=== PATIENT | female | born 1985 | race Caucasian/White ===

== ENCOUNTER 2017-10-07 12:49 | Emergency (ER) | payer OTHER ==
[~2017-10-07] VITALS: Ht 160 cm; Wt 116.1 kg
[~2017-10-07 12:49] MED LIST: CLIN150C1 PO; SULF-58 PO
[2017-10-07 12:51] VITALS: BP 110/78
[2017-10-07 14:50] VITALS: BP 121/75
== END 2017-10-07 14:50 | disposition home or self-care (01) ==
LOC: MED 12:49
DX: O03.9 Complete or unspecified spontaneous abortion without complication (principal); Z79.899 Other long term (current) drug therapy; Z88.0 Allergy status to penicillin; Z88.1 Allergy status to other antibiotic agents; Z88.8 Allergy status to other drugs, medicaments and biological substances
CPT/HCPCS: 76815; 81025; 99284; Q0092

== ENCOUNTER 2018-11-03 10:52 | Emergency (ER) | payer OTHER ==
[~2018-11-03] VITALS: Ht 160 cm; Wt 120.2 kg
[2018-11-03 11:02] VITALS: BP 132/84
--- NOTE | 2018-11-03 11:02 | NUR ---
33 YO FEMALE BIB SELF FOR 10 SUDDEN BL LOW BACK PAIN FOR 3 DAYS, WORSE TODAY RADIATING TO RIGHT LEG. ABLE TO AMBULATE WITH STEADY GAIT. PT DENIES ANY RECENT INJURY OR FALL. PT STS SIMILIAR PAIN IN PAST. PT IS AAOX4 TO PERSON, PLACE, TIME, AND SITUATION. RR ARE EVEN AND UNLABORED. PT POSITIONED TO COMFORT. NAD. AWAITING ER MD VEGAS.
--- NOTE | 2018-11-03 11:05 | NUR ---
er md burgess by bedside examining pt
[2018-11-03] MEDS ORDERED: LORazepam 2 MG/ML VIAL IM ONE (11:10)
[2018-11-03] MEDS ORDERED: KETOROLAC 60 MG/2 ML VIAL IM ONE (11:10)
--- NOTE | 2018-11-03 11:38 | NUR ---
awaiting ua sample. patient aware. given multiple cups of water. will continue to check. er md burgess made aware.
--- NOTE | 2018-11-03 12:09 | NUR ---
PT TO XRAY VIA W/C ACCOMPANIED BY FOUNDRY HAND.
--- NOTE | 2018-11-03 12:15 | NUR ---
PT RETURNED FROM XRAY VIA W/C ACCOMPANIED BY PROJECT ADMINISTRATOR. RETURNED TO RM 11 WITHOUT INCIDENT.
[2018-11-03] MEDS ORDERED: traMADol 50 MG TAB PO ONE (12:35)
[2018-11-03] MEDS ORDERED: LACTULOSE 20 GM/30 ML UDC PO ONE (12:35)
--- NOTE | 2018-11-03 13:30 | NUR ---
Patient discharged with v/s stable. Written and verbal after care instructions given and explained. Patient alert, oriented and verbalized understanding of instructions. Ambulatory with steady gait. All questions addressed prior to discharge. ID band removed. Patient advised to follow up with PMD. Rx of Tramadol 50mg and Voltaren 100mg given. Patient educated on indication of medication including possible reaction and side effects. Opportunity to ask questions provided and answered.
[2018-11-03 13:31] VITALS: BP 130/80
[2018-11-03 13:33] LABS: APPEARANCE,URINE HAZY (CLEAR); BILIRUBIN,URINE NEGATIVE (NEGATIVE); BLOOD, URINE NEGATIVE (NEGATIVE); COLOR,URINE YELLOW (YELLOW); LEUKOCYTE ESTERASE ,URINE NEGATIVE (NEGATIVE); NITRITE, URINE NEGATIVE (NEGATIVE); PH,URINE 6.5 (5.0-9.0); UGLUCOSE NEGATIVE (NEGATIVE)
== END 2018-11-03 13:30 | disposition home or self-care (01) ==
LOC: MED 10:52
DX: M54.5 Low back pain (principal); E03.9 Hypothyroidism, unspecified; N92.6 Irregular menstruation, unspecified; M19.90 Unspecified osteoarthritis, unspecified site; E66.01 Morbid (severe) obesity due to excess calories; Z79.899 Other long term (current) drug therapy; Z88.0 Allergy status to penicillin; Z88.1 Allergy status to other antibiotic agents; Z88.5 Allergy status to narcotic agent; Z88.8 Allergy status to other drugs, medicaments and biological substances; Z68.42 Body mass index [BMI] 45.0-49.9, adult
CPT/HCPCS: 74018; 81003; 81025; 96372; 99284; J1885; J2060

== ENCOUNTER 2019-01-03 08:12 | Emergency (ER) | payer OTHER ==
[~2019-01-03] VITALS: Ht 160 cm; Wt 122.0 kg
[2019-01-03 08:20] VITALS: BP 124/76
--- NOTE | 2019-01-03 08:20 | NUR ---
PT BIB [facility] C/O 1010 PAIN FROM CYST NEAR OUTSIDE OF VAGINA X3 DAYS. PT REPORTS SWOLLEN AROUND CYST, HARD, AND TENDER TO TOUCH. PT HAS BEEN TREATING WITH IBUPROFEN WITH SOME RELIRF. VSS. ER TO SEE PT. MEDHX:DENIES RX:TRIMETH/SULFA, IBUPROFEN
--- NOTE | 2019-01-03 08:21 | NUR ---
PT AMBULATED TO ER BED 07
[2019-01-03 08:57] VITALS: BP 124/76
== END 2019-01-03 08:57 | disposition home or self-care (01) ==
LOC: MED 08:12
DX: N76.4 Abscess of vulva (principal); Z88.0 Allergy status to penicillin; Z88.6 Allergy status to analgesic agent; Z88.1 Allergy status to other antibiotic agents; Z90.49 Acquired absence of other specified parts of digestive tract; Z79.2 Long term (current) use of antibiotics
CPT/HCPCS: 81002; 81025; 99283

== ENCOUNTER 2019-01-14 17:10 | Emergency (ER) | payer OTHER ==
[~2019-01-14] VITALS: Ht 160 cm; Wt 118.6 kg
[2019-01-14 17:18] VITALS: BP 111/50
--- NOTE | 2019-01-14 17:20 | NUR ---
PT AMBULATED TO ER BED 07
--- NOTE | 2019-01-14 17:25 | NUR ---
33 Y FEMALE C/O RT FOOT HEEL PAIN. STEPPED ON GLASS LAST WEEK AND WANTS TO MAKE SURE ALL GLASS IS OUT. -REDNESS, -SWELLING, -ECCHYMOSIS. PT STATES PAINFUL WHEN WALKING, 6/10 ACHING PAIN. PT WOULD ALSO LIKE TO CONFIRM WHETHER OR NOT SHE HAS MRSA. VSS AT THIS TIME. BED IS DOWN, LOCKED, BED RAIL X 1, ERMD NOTIFIED. MED HX: HYPERTHYROID
--- NOTE | 2019-01-14 18:06 | NUR ---
DR FRANCISCO AT BEDSIDE
--- NOTE | 2019-01-14 18:14 | NUR ---
XRAY AT BEDSIDE
[2019-01-14] MEDS ORDERED: IBUPROFEN 600 MG TAB PO ONE (18:15)
--- NOTE | 2019-01-14 18:58 | NUR ---
VSS AT THIS TIME, AA0X4, PT SITTING IN BED
[2019-01-14 19:00] VITALS: BP 115/58
--- NOTE | 2019-01-14 19:00 | NUR ---
Patient discharged with v/s stable. Written and verbal after care instructions given and explained. Patient alert, oriented and verbalized understanding of instructions. Ambulatory with steady gait. All questions addressed prior to discharge. ID band removed. Patient advised to follow up with PMD. Rx of KEFLEX, BACITRACIN, IBUPROFEN given. Patient educated on indication of medication including possible reaction and side effects. Opportunity to ask questions provided and answered.
== END 2019-01-14 19:00 | disposition home or self-care (01) ==
LOC: MED 17:10
DX: M79.671 Pain in right foot (principal); E07.9 Disorder of thyroid, unspecified; Z88.0 Allergy status to penicillin; Z88.1 Allergy status to other antibiotic agents; Z88.5 Allergy status to narcotic agent; Z79.899 Other long term (current) drug therapy
CPT/HCPCS: 73630; 81025; 90471; 90715; 99283; Q0092

== ENCOUNTER 2021-07-20 16:50 | Emergency (ER) | payer OTHER ==
[~2021-07-20] VITALS: Ht 162.6 cm; Wt 116.1 kg
[2021-07-20 17:02] VITALS: BP 130/91
--- NOTE | 2021-07-20 17:07 | NUR ---
Patient ambulated to bed 04 with steady/even gait.
[2021-07-20] MEDS ORDERED: MECLIZINE 25 MG TAB PO ONE (17:10)
--- NOTE | 2021-07-20 17:10 | NUR ---
36 y/o F BIB self from home c/o dizziness and nausea x 1 day. Patient A&Ox4, ambulatory, states she noticed dizziness after working out last night. Patient states associated nausea after drinking fluids + head spinning. States laying down/resting alleviates dizziness. Denies abdominal pain, vomiting, diarrhea, constipation, blurry vision, chest pain, SOB. Bed locked in lowest position, side rails x 1, call light in reach. PMH/Sx/Meds: hypothyroidism / levothyroxine Allergies: PCN, Tylenol, amoxicillin
--- NOTE | 2021-07-20 17:11 | NUR ---
SRINI Leyva is evaluating patient at bedside
--- NOTE | 2021-07-20 17:14 | NUR ---
EMT at bedside for EKG
--- NOTE | 2021-07-20 17:14 | NUR ---
Lab at bedside
[2021-07-20] MEDS ORDERED: ONDANSETRON 4 MG ODT PO ONE (17:20)
[2021-07-20 17:33] LABS: BASOPHILS # (AUTO) 0.1 K/uL (0.00-0.22); BASOPHILS % (AUTO) 0.5 % (0.0-2.0); EOSINOPHILS # (AUTO) 0.1 K/uL (0-0.4); EOSINOPHILS % (AUTO) 0.6 % (0.0-4.0); HEMATOCRIT 45.1 % (36-48); HEMOGLOBIN 14.7 g/dL (12.0-16.0); LYMPHOCYTES # (AUTO) 2.9 K/uL (2.5-16.5); LYMPHOCYTES % (AUTO) 24.5 % (20.5-51.1); MEAN CORPUSCULAR HEMOGLOBIN 27 pg (27-31); MEAN CORPUSCULAR HGB CONC 33 g/dL (33-37); MEAN CORPUSCULAR VOLUME 83.9 fL (80-94); MONOCYTES # (AUTO) 0.9 K/uL (0.8-1.0); MONOCYTES % (AUTO) 7.3 % (1.7-9.3); NEUTROPHILS % (AUTO) 67.1 % (42.2-75.2); PLATELET COUNT (AUTO) 245 K/uL (140-450); RED BLOOD CELL COUNT(AUTO) 5.38 MIL/uL (4.20-5.40); RED CELL DISTRIBUTION WIDTH 14.8 % (11.6-13.7); WHITE BLOOD COUNT (AUTO) 11.9 K/uL (4.8-10.8)
[2021-07-20 17:54] LABS: ALBUMIN 3.7 g/dL (3.4-5.0); ANION GAP 14.8 (8-16); CARBON DIOXIDE 26.4 mmol/L (21-32); CREATININE 0.8 mg/dL (0.6-1.3); POTASSIUM 4.2 mmol/L (3.5-5.1); TOTAL BILIRUBIN 0.6 mg/dL (0.0-1.0)
--- NOTE | 2021-07-20 17:55 | NUR ---
Pt states she feels better; denies nausea and dizziness at this time. All pt needs met.
[2021-07-20] MEDS ORDERED: ONDA-188 SL (18:04)
[2021-07-20] MEDS ORDERED: MECL-303 PO (18:04)
--- NOTE | 2021-07-20 18:08 | NUR ---
SRINI Leyva is reevaluating patient at bedside
--- NOTE | 2021-07-20 18:12 | NUR ---
Patient discharged with v/s stable. Written and verbal after care instructions given and explained. Patient alert, oriented and verbalized understanding of instructions. Ambulatory with steady gait. All questions addressed prior to discharge. ID band removed. Patient advised to follow up with PMD. Rx of Meclizine, Zofran ODT given. Patient educated on indication of medication including possible reaction and side effects. Opportunity to ask questions provided and answered.
== END 2021-07-20 18:12 | disposition home or self-care (01) ==
LOC: MED 16:50
DX: R42 Dizziness and giddiness (principal); R11.0 Nausea; E07.9 Disorder of thyroid, unspecified; Z88.0 Allergy status to penicillin; Z88.1 Allergy status to other antibiotic agents; Z88.8 Allergy status to other drugs, medicaments and biological substances; Z88.5 Allergy status to narcotic agent; Z79.899 Other long term (current) drug therapy
CPT/HCPCS: 36415; 80053; 81002; 81025; 85025; 93005; 99284; J8597; Q0162

== ENCOUNTER 2023-05-17 17:06 | Emergency (ER) | payer OTHER ==
[~2023-05-17] VITALS: Ht 167.6 cm; Wt 120.2 kg
[~2023-05-17 17:06] MED LIST changes: +MECL-303 PO; +ONDA-188 SL
[2023-05-17 17:21] VITALS: BP 132/67; PULSE 96; RESP 18; TEMP 98.9; O2SAT 96
[2023-05-17 19:39] LABS: BASOPHILS % (AUTO) 0.2 % (0.0-2.0); EOSINOPHILS % (AUTO) 0.1 % (0.0-4.0); HEMATOCRIT 42.6 % (36-48); HEMOGLOBIN 14.1 g/dL (12.0-16.0); LYMPHOCYTES # (AUTO) 1.4 K/uL (2.5-16.5); LYMPHOCYTES % (AUTO) 11.8 % (20.5-51.1); MEAN CORPUSCULAR HEMOGLOBIN 27 pg (27-31); MEAN CORPUSCULAR HGB CONC 33 g/dL (33-37); MONOCYTES # (AUTO) 0.7 K/uL (0.8-1.0); MONOCYTES % (AUTO) 5.8 % (1.7-9.3); NEUTROPHILS # (AUTO) 9.5 K/uL (1.8-7.7); NEUTROPHILS % (AUTO) 82.1 % (42.2-75.2); PLATELET COUNT (AUTO) 244 K/uL (140-450); RED CELL DISTRIBUTION WIDTH 15.1 % (11.6-13.7); WHITE BLOOD COUNT (AUTO) 11.6 K/uL (4.8-10.8)
[2023-05-17 19:56] LABS: ALBUMIN 3.3 g/dL (3.4-5.0); ANION GAP 15.2 (8-16); CALCIUM 8.6 mg/dL (8.5-10.1); CARBON DIOXIDE 25.5 mmol/L (21-32); CREATININE 1.1 mg/dL (0.6-1.3); POTASSIUM 3.7 mmol/L (3.5-5.1); TOTAL BILIRUBIN 0.6 mg/dL (0.0-1.0); TOTAL PROTEIN, SERUM 7.7 g/dL (6.4-8.2)
[2023-05-17] MEDS ORDERED: NACL 0.9% 1,000 ML IV ONE (20:00)
[2023-05-17] MEDS ORDERED: KETOROLAC 30 MG/ML VIAL IVP ONE (20:00)
[2023-05-17 20:12] LABS: FLU A ANTIGEN negative (NEGATIVE); FLU B ANTIGEN NEGATIVE (NEGATIVE)
[2023-05-17] MEDS ORDERED: ONDA-188 SL (22:38)
[2023-05-17 22:48] VITALS: BP 101/61; PULSE 74; RESP 13; O2SAT 97
== END 2023-05-17 22:48 | disposition home or self-care (01) ==
LOC: MED 17:06
DX: B34.9 Viral infection, unspecified (principal); R19.7 Diarrhea, unspecified; E07.9 Disorder of thyroid, unspecified; Z88.0 Allergy status to penicillin; Z88.1 Allergy status to other antibiotic agents; Z88.5 Allergy status to narcotic agent; Z88.6 Allergy status to analgesic agent; Z79.899 Other long term (current) drug therapy; Z90.49 Acquired absence of other specified parts of digestive tract; Z20.822 Contact with and (suspected) exposure to COVID-19
CPT/HCPCS: 36415; 80053; 81025; 83690; 85025; 87426; 87804; 96361; 96374; 99283; J1885; J7030

== ENCOUNTER 2023-12-16 12:55 | Emergency (ER) | payer OTHER ==
[~2023-12-16] VITALS: Ht 167.6 cm; Wt 119.7 kg
[2023-12-16 13:05] VITALS: BP 104/83; PULSE 79; RESP 18; TEMP 98.1; O2SAT 97
[2023-12-16 13:25] VITALS: O2SAT 97
[2023-12-16 13:58] LABS: BASOPHILS % (AUTO) 0.5 % (0.0-2.0); EOSINOPHILS % (AUTO) 1.1 % (0.0-4.0); HEMATOCRIT 41.2 % (36-48); HEMOGLOBIN 13.7 g/dL (12.0-16.0); LYMPHOCYTES # (AUTO) 1.4 K/uL (2.5-16.5); LYMPHOCYTES % (AUTO) 35.7 % (20.5-51.1); MEAN CORPUSCULAR HEMOGLOBIN 27 pg (27-31); MEAN CORPUSCULAR HGB CONC 33 g/dL (33-37); MEAN CORPUSCULAR VOLUME 81.6 fL (80-94); MONOCYTES # (AUTO) 0.7 K/uL (0.8-1.0); MONOCYTES % (AUTO) 16.9 % (1.7-9.3); NEUTROPHILS # (AUTO) 1.8 K/uL (1.8-7.7); NEUTROPHILS % (AUTO) 45.8 % (42.2-75.2); PLATELET COUNT (AUTO) 207 K/uL (140-450); RED BLOOD CELL COUNT(AUTO) 5.05 MIL/uL (4.20-5.40); RED CELL DISTRIBUTION WIDTH 14.8 % (11.6-13.7); WHITE BLOOD COUNT (AUTO) 3.9 K/uL (4.8-10.8)
[2023-12-16 14:08] VITALS: TEMP 98.1
[2023-12-16 14:25] LABS: ANION GAP 11.7 (8-16); CALCIUM 8.4 mg/dL (8.5-10.1); CARBON DIOXIDE 25.8 mmol/L (21-32); CREATININE 0.8 mg/dL (0.6-1.3); POTASSIUM 3.5 mmol/L (3.5-5.1)
[2023-12-16] MEDS: LIDOCAINE 5% 1 EA PATCH TP ONE (14:51)
[2023-12-16] MEDS: KETOROLAC 30 MG/ML VIAL IVP ONE (14:51)
[2023-12-16] MEDS ORDERED: IBUP-2213 PO (15:23)
[2023-12-16] MEDS ORDERED: LID5T TP (15:23)
[2023-12-16] MEDS ORDERED: BENZ200C4 PO (15:23)
[2023-12-16 15:29] VITALS: BP 137/91; PULSE 68; RESP 18; O2SAT 100
== END 2023-12-16 15:45 | disposition home or self-care (01) ==
LOC: MED 12:55
DX: M94.0 Chondrocostal junction syndrome [Tietze] (principal); E03.9 Hypothyroidism, unspecified; Z88.0 Allergy status to penicillin; Z88.1 Allergy status to other antibiotic agents; Z88.8 Allergy status to other drugs, medicaments and biological substances; Z79.899 Other long term (current) drug therapy
CPT/HCPCS: 36415; 71045; 80048; 81025; 84484; 85025; 93005; 96374; 99285; J1885

== ENCOUNTER 2024-05-01 20:17 | Emergency (ER) | payer OTHER ==
[~2024-05-01] VITALS: Ht 165.1 cm; Wt 110.8 kg
[~2024-05-01 20:17] MED LIST changes: +BENZ200C4 PO; +IBUP-2213 PO; +LID5T TP
[2024-05-01 20:42] VITALS: BP 125/76; PULSE 63; RESP 14; TEMP 97.6; O2SAT 98
[2024-05-01] MEDS: KETOROLAC 30 MG/ML VIAL IM ONE (21:38)
[2024-05-01 21:51] LABS: BASOPHILS % (AUTO) 0.4 % (0.0-2.0); EOSINOPHILS # (AUTO) 0.2 K/uL (0-0.4); EOSINOPHILS % (AUTO) 1.4 % (0.0-4.0); HEMATOCRIT 38.5 % (36-48); HEMOGLOBIN 12.2 g/dL (12.0-16.0); LYMPHOCYTES # (AUTO) 3.4 K/uL (2.5-16.5); LYMPHOCYTES % (AUTO) 27.7 % (20.5-51.1); MEAN CORPUSCULAR HEMOGLOBIN 26 pg (27-31); MEAN CORPUSCULAR HGB CONC 32 g/dL (33-37); MEAN CORPUSCULAR VOLUME 80.9 fL (80-94); MONOCYTES # (AUTO) 0.9 K/uL (0.8-1.0); MONOCYTES % (AUTO) 7.3 % (1.7-9.3); NEUTROPHILS # (AUTO) 7.8 K/uL (1.8-7.7); NEUTROPHILS % (AUTO) 63.2 % (42.2-75.2); PLATELET COUNT (AUTO) 237 K/uL (140-450); RED BLOOD CELL COUNT(AUTO) 4.75 MIL/uL (4.20-5.40); RED CELL DISTRIBUTION WIDTH 15.6 % (11.6-13.7); WHITE BLOOD COUNT (AUTO) 12.4 K/uL (4.8-10.8)
[2024-05-01 21:55] LABS: APPEARANCE,URINE CLEAR (CLEAR); BILIRUBIN,URINE NEGATIVE (NEGATIVE); BLOOD, URINE NEGATIVE (NEGATIVE); COLOR,URINE YELLOW (YELLOW); LEUKOCYTE ESTERASE ,URINE NEGATIVE (NEGATIVE); NITRITE, URINE NEGATIVE (NEGATIVE); PROTEIN,URINE NEGATIVE (NEGATIVE); UGLUCOSE NEGATIVE (NEGATIVE); UROBILINOGEN,URINE 0.2 EU/dL (0.2 - 1)
[2024-05-01 21:58] LABS: ANION GAP 11.5 (8-16); CALCIUM 8.7 mg/dL (8.5-10.1); CARBON DIOXIDE 27.5 mmol/L (21-32); CREATININE 0.8 mg/dL (0.6-1.3)
[2024-05-01 22:00] VITALS: O2SAT 98
== END 2024-05-01 22:26 | disposition home or self-care (01) ==
LOC: MED 20:17
DX: R10.2 Pelvic and perineal pain (principal); N93.8 Other specified abnormal uterine and vaginal bleeding; E03.9 Hypothyroidism, unspecified; Z79.899 Other long term (current) drug therapy; Z88.0 Allergy status to penicillin; Z88.5 Allergy status to narcotic agent; Z88.6 Allergy status to analgesic agent
CPT/HCPCS: 36415; 80048; 81003; 81025; 85025; 96372; 99283; J1885

== ENCOUNTER 2024-05-04 16:46 | Emergency (ER) | payer OTHER ==
[~2024-05-04] VITALS: Ht 165.1 cm; Wt 110.7 kg
[2024-05-04 16:59] VITALS: BP 114/80; PULSE 74; RESP 22; TEMP 97.5; O2SAT 97
[2024-05-04 17:47] VITALS: O2SAT 97
[2024-05-04] MEDS ORDERED: KETOROLAC 60 MG/2 ML VIAL IM ONE (18:19)
[2024-05-04] MEDS: KETOROLAC 60 MG/2 ML VIAL IM ONE (18:22)
[2024-05-04] MEDS ORDERED: LOPE-289 PO (18:47)
[2024-05-04] MEDS ORDERED: ONDA8TAB87 PO (18:47)
[2024-05-04] MEDS ORDERED: IBUP-2213 PO (18:47)
[2024-05-04 18:53] VITALS: BP 114/80; PULSE 74; RESP 18; TEMP 97.5; O2SAT 97
== END 2024-05-04 18:54 | disposition home or self-care (01) ==
LOC: MED 16:46
DX: R10.13 Epigastric pain (principal); R11.2 Nausea with vomiting, unspecified; R19.7 Diarrhea, unspecified; Z90.49 Acquired absence of other specified parts of digestive tract; Z79.2 Long term (current) use of antibiotics; Z79.1 Long term (current) use of non-steroidal anti-inflammatories (NSAID); Z79.899 Other long term (current) drug therapy; Z88.0 Allergy status to penicillin; Z88.1 Allergy status to other antibiotic agents
CPT/HCPCS: 81025; 96372; 99283; J1885